=== PATIENT | female | born 1990 | race Caucasian/White ===

== ENCOUNTER 2018-10-13 23:28 | Inpatient (IN) ==
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
[2018-10-14 01:14] LABS: UR AMPHETAMINES QUAL NONE DETECTED (NONE DETECT); UR BARBITUATES QUAL NONE DETECTED (NONE DETECT); UR BENZODIAZEPIN QUAL NONE DETECTED (NONE DETECT); UR CANNABINOIDS QUAL PRESUMPTIVE POSITIVE (NONE DETECT); UR COCAINE QUAL NONE DETECTED (NONE DETECT); UR METHADONE QUAL NONE DETECTED (NONE DETECT); UR METHAMPHETAMINE QUAL PRESUMPTIVE POSITIVE (NONE DETECT); UR OPIATES QUAL NONE DETECTED (NONE DETECT); UR OXYCODONE QUAL NONE DETECTED (NONE DETECT); UR PCP QUAL NONE DETECTED (NONE DETECT); UR PROPOXYPHENE QUAL NONE DETECTED (NONE DETECT); UR TCA QUAL NONE DETECTED (NONE DETECT)
[2018-10-14 01:16] LABS: BASO# 0.04 X1000 (0.0-0.2); BASO% 0.5 % (0.0-0.8); EOS# 0.03 X1000 (0.0-0.7); EOS% 0.4 % (0.0-10.0); HEMATOCRIT 38.1 % (37.0-47.0); HEMOGLOBIN 13.1 g/dL (12.0-16.0); IMM GRAN# 0.02 X1000 (0.0-0.04); IMM GRAN% 0.2 % (0.0-0.5); LYMPH# 2.01 X1000 (1.2-3.4); LYMPH% 24.6 % (20.5-51.1); MCH 32.2 PG (27-31); MCHC 34.4 g/dL (33-37); MCV 93.6 FL (81-99); MONO# 0.71 X1000 (0.11-0.59); MONO% 8.7 % (1.7-9.3); MPV 11.7 FL (7.4-10.4); NEUT# 5.36 X1000 (1.4-6.5); NEUT% 65.6 % (42.2-75.2); PLT 186 X1000 (130-400); RBC 4.07 XMIL (4.2-5.4); RDW 12.3 % (11.5-14.5); WBC 8.17 X1000 (4.8-10.8)
[2018-10-14 01:19] LABS: BILIRUBIN URINE NEGATIVE (NEGATIVE); BLOOD URINE TRACE (NEGATIVE); GLUCOSE URINE NEGATIVE (NEGATIVE); KETONE URINE 1+(Small) mg/dL (NEGATIVE); SP GRAVITY URINE 1.025
[2018-10-14 01:20] LABS: CLARITY CLEAR (CLEAR); COLOR YELLOW; LEUKOCYTES URINE TRACE (NEGATIVE); NITRITE URINE NEGATIVE (NEGATIVE); PROTEIN URINE 1+(30 mg/dL) mg/dL (NEGATIVE); UROBILINOGEN URINE 4 mg/dL
[2018-10-14 01:22] LABS: ALBUMIN 4.1 g/dL (3.5-5.0); ALKALINE PHOSPHATASE 81 U/L (32-104); BUN 8 mg/dL (8-22); CALCIUM 8.7 mg/dL (8.8-10.2); CREATININE 0.9 mg/dL (0.5-0.9); GLUCOSE 86 mg/dL (70-104); GOT 26 U/L (10-30); GPT 16 U/L (10-36); TCO2 24 mmol/L (25-35)
[2018-10-14 01:25] LABS: URINE BACTERIA 4+ /HFP; URINE CRYSTAL NONE SEEN /HPF; URINE EPITHELIAL CELLS <10 /HPF (<10); URINE SOURCE CATH; URINE YEAST NONE SEEN /HPF
[2018-10-14 01:26] LABS: URINE RBC <10 /HPF (<10); URINE WBC <10 /HPF (<10)
[2018-10-14 01:41] LABS: CHLORIDE 104 mmol/L (98-107); POTASSIUM 3.4 mmol/L (3.5-5.1); SODIUM 139 mmol/L (136-145)
[2018-10-14 01:47] LABS: AGAP 11; COSMO 275
[2018-10-14] MEDS ORDERED: NS 1,000 ML IV ONE (03:15)
[2018-10-14] MEDS ORDERED: ATIVAN IV ONE (04:08)
[2018-10-14] MEDS ORDERED: GEODON ONE (04:18)
[2018-10-14] MEDS ORDERED: GEODON IM ONE (04:20)
[2018-10-14] MEDS ORDERED: STERILE WATER INJ. INJ ONE (04:20)
[2018-10-14] MEDS ORDERED: ATIVAN IV PRN (04:38)
--- NOTE | 2018-10-14 05:30 | Diag Imaging Result Doc PS360 ---
EXAM : CT HEAD/C-SPINE W/O CONTRAST HISTORY: AMS/head trauma/ may be TECHNIQUE: 1. CT head without contrast 2. CT cervical spine without contrast COMPARISON: None. FINDINGS: Head: No parenchymal hemorrhage. No epidural or subdural hematoma. No subarachnoid hemorrhage. No mass identified on this noncontrasted exam. No hydrocephalus. No skull fracture. Cervical spine: There is reversal of normal curvature. Mild degenerative bone spurring in the lower cervical spine. No precervical soft tissue swelling. No fracture. Bulging disc and bone spurring at C5-6 resulting in spinal stenosis. IMPRESSION: Head: No hemorrhage. No injury. Cervical spine: No acute fracture. A preliminary report was given at 12:48 AM This exam was performed using automated exposure control, adjustment of mA or kV according to patient size, and/or use of iterative reconstruction technique. Electronically signed by Harjinder Peña 10/14/2018 5:27 AM
--- NOTE | 2018-10-14 13:40 | Diag Imaging Result Doc PS360 ---
EXAM: US TRANSVAGINAL NON-OB HISTORY: vaginal bleeding TECHNIQUE: Emergency transvaginal ultrasound COMPARISON: None. FINDINGS: The uterus measures 7.1 x 2.3 x 5.5 cm. Endometrium is not thickened. The two castillo combined measure 4 mm. No uterine mass. Normal ovaries. No adnexal mass. No free fluid. IMPRESSION: Normal exam. Electronically signed by Harjinder Peña 10/14/2018 1:38 PM
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
[2018-10-14] MEDS: M.V.I.-12 10 ML, FOLIC ACID 1 MG, MAGNESIUM SULFATE 1 GM, THIAMINE 100 MG in NS 1,000 ML IV SCH (15:53)
[2018-10-14] MEDS: GEODON IM PRN (18:10)
[2018-10-14] MEDS: STERILE WATER INJ. INJ PRN (18:11)
[2018-10-14] MEDS ORDERED: PHENOBARBITAL IM ONE (18:32)
[2018-10-14] MEDS: PHENOBARBITAL IM SCH (19:21)
[2018-10-14] MEDS: SEROQUEL PO SCH (23:13)
[2018-10-15] MEDS: PHENOBARBITAL IM SCH ×4 (03:37→17:52)
[2018-10-15] MEDS: SEROQUEL PO SCH ×2 (09:09→20:37)
[2018-10-15] MEDS: STERILE WATER INJ. INJ PRN (09:10)
[2018-10-15] MEDS: GEODON IM PRN ×2 (09:10→17:52)
[2018-10-15] MEDS: M.V.I.-12 10 ML, FOLIC ACID 1 MG, MAGNESIUM SULFATE 1 GM, THIAMINE 100 MG in NS 1,000 ML IV SCH (10:55)
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
[2018-10-16] MEDS: PHENOBARBITAL IM SCH ×2 (02:04→09:15)
[2018-10-16] MEDS: GEODON IM PRN (09:12)
[2018-10-16] MEDS: STERILE WATER INJ. INJ PRN (09:12)
[2018-10-16] MEDS: M.V.I.-12 10 ML, FOLIC ACID 1 MG, MAGNESIUM SULFATE 1 GM, THIAMINE 100 MG in NS 1,000 ML IV SCH (10:02)
[2018-10-16] MEDS: SEROQUEL PO SCH (10:02)
[2018-10-16 15:55] VITALS: BP 137/78
--- NOTE | 2018-10-17 10:13 | DISCHARGE SUMMARY ---
ADMISSION DATE: 10/14/2018 DISCHARGE DATE: 10/16/2018 PERTINENT PROCEDURES: Head cervical spine CT, no hemorrhage, no injury, no acute fracture. Pelvic transvaginal ultrasound was a normal exam. ADMISSION DIAGNOSES: 1. Methamphetamine intoxication with risks of withdrawal with aggressive behaviors. 2. Toxic encephalopathy on and off. 3. Alcohol abuse, aware. Patient received banana bag daily. 4. Tobacco abuse. Attempted to discuss cessation however due to patient's mental status was unable. 5. Two doctor hold. DISCHARGE DIAGNOSIS: Altered mental status with psychosis. The patient per mother does have some underlying psychiatric issues and has been held at a psychiatric facility in [place] before. She was currently working on getting power of title attorney through her title attorney who did fax over paperwork that was signed and sent back. She has been assessed and will be accepted to [facility] at this time for further evaluation and treatment. HOSPITAL COURSE: Briefly, Ms. Pittman is a 28-year-old female who we believe does not have any past medical history, but per the mother, she does have a psychiatric history and has had to be placed in a psychiatric facility in [place] before. She was brought in to [place] ED by the police department after she was found eating meng and grabbing her stomach saying that she had lost it and that she was . Her urine test was negative as well as a vaginal ultrasound was normal. She did state that she does synthetic marijuana and did not admit to using any other drugs. However, she did admit to drinking liquor daily. Her alcohol level was negative. She was positive for methamphetamines and in the ED she had received Geodon, Haldol and Ativan and after that became very agitated quickly and was saying that her 2 children have been taken away from her and initially tried to run out of the hospital. The staff convinced her to return to her room and she was placed on a 2 doctor hold. The patient continued to become agitated on and off and would have to be chemically restrained. Initially was refusing all medications, continued to be combative. She did try to bite 1 of the technicians. After speaking with [facility], she has been accepted to their facility for further evaluation and treatment. Dictated by BRONWYN Williamson for Herminio Santacruz MD cc: MD Dr. Caleb Jacques, [facility]
--- NOTE | 2018-10-17 10:23 | DISCHARGE SUMMARY ---
ADMISSION DATE: 10/14/2018 DISCHARGE DATE: 10/16/2018 ADDENDUM: Patient seen and examined by myself. Full note dictated and discussed with nurse practitioner. The patient presented to the hospital diagnosed with toxic encephalopathy. This does not appear to be secondary to drugs or medications. Has not improved while she was in the hospital. She had frequent episodes of delirium, anger and confusion. She was evaluated by [facility] and felt as though she needed to be transferred. She will be therefore transferred to [facility] for further evaluation and treatment. cc: Herminio Santacruz MD
== END 2018-10-16 16:35 | DRG 896 ==
LOC: EDBD 23:28 → P.ED 23:28 → P.MEDSURG 23:28 → MERGE 10-14 07:18 → SUATTDRO 10-14 07:18 → OBSVTOIN 10-14 07:18
PROVIDERS: ATTEND Family Medicine